=== PATIENT | female | born 1945 | race Caucasian/White ===

== ENCOUNTER 2019-12-22 19:37 | Emergency (ER) | payer MEDICARE, OTHER ==
[2019-12-22 19:51] VITALS: BP 125/70
--- NOTE | 2019-12-22 20:04 | ED Physician Documentation ---
History of Present Illness - Stated complaint Stated Complaint: POSS EXPOSURE - Chief complaint Chief Complaint: Heent - History obtained from History obtained from: Patient, Family (Dr. Kip segal (son of patient)) - History of Present Illness Timing: Today Pain level max: 0 Pain level now: 0 - Additonal information Additional information: 74-year-old female presents to the emergency department with mild rhinorrhea and congestion. Nothing makes it better or worse. No cough. No fevers. Her was recently hospitalized for shortness of breath, he has pleural effusions, he has one negative Covid test, she is here to stay with her family as she cannot take care of herself at home. They are concerned about potential Covid exposure. Review of Systems Constitutional: denies: Fever, Chills Nose: reports: Rhinorrhea / runny nose Respiratory: denies: Cough Skin: denies: Rash Musculoskeletal: denies: Neck pain, Back pain Neurologic: denies: Headache PD PAST MEDICAL HISTORY - Past Medical History Past Medical History: Yes - Present Medications Home Medications: Ambulatory Orders Medication Instructions Recorded Confirmed Apixaban [Eliquis] 2.5 mg PO 12/22/19 Metoprolol Succinate [Toprol Xl] 25 mg PO DAILY 12/22/19 12/22/19 - Allergies Allergies/Adverse Reactions: Allergies Allergy/AdvReac Type Severity Reaction Status Date / Time No Known Drug Allergies Allergy Verified 12/22/19 19:51 PD ED PE NORMAL - Vitals Vital signs reviewed: Yes - General General: Alert and oriented X 3, No acute distress, Well developed/nourished - HEENT HEENT: Ears normal, Moist mucous membranes, Pharynx benign - Neck Neck: Supple, no meningeal sign - Respiratory Respiratory: No respiratory distress - Derm Derm: Warm and dry - Neuro Neuro: Alert and oriented X 3 Results - Vitals Vitals: Vital Signs - 24 hr 12/22/19 12/22/19 19:40 20:55 Temperature 37 C 36.8 C Heart Rate 65 66 Respiratory 18 16 Rate Blood Pressure 125/70 125/70 O2 Saturation 98 98 Oxygen O2 Source Room air - Labs Labs: Laboratory Tests 12/22/19 19:53 SARS-CoV-2 (PCR) NOT DETECTED PD MEDICAL DECISION MAKING - ED course Complexity details: reviewed results, considered differential, d/w patient, d/w family ED course: Negative Covid test. No other emergency medical condition at this time. Departure - Departure Disposition: 01 Home, Self Care Clinical Impression: Encounter for medical screening examination Condition: Good Follow-Up: your,doctor as needed [Other] Comments: Your Covid test is negative today. Follow-up with your doctor as needed for further care. Discharge Date/Time: 12/22/19 20:55
== END 2019-12-22 20:55 | disposition home or self-care (01) ==
LOC: ED 19:37
DX: J34.89 Other specified disorders of nose and nasal sinuses (principal); R09.81 Nasal congestion; Z20.828 Contact with and (suspected) exposure to other viral communicable diseases
CPT/HCPCS: 99281; 99283; U0004